=== PATIENT | male | born 1985 | race Two or more races ===

== ENCOUNTER 2018-01-14 16:37 | Emergency (ER) | payer MEDICAID ==
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
[2018-01-14] MEDS ORDERED: TDAP ADULT 0.5 ML INJ (BOOSTRIX) IM ONE (17:28)
[2018-01-14 18:35] VITALS: BP 108/70
== END 2018-01-14 18:35 | disposition home or self-care (01) ==
DX: S09.90XA Unspecified injury of head, initial encounter (principal); F17.200 Nicotine dependence, unspecified, uncomplicated; Z23 Encounter for immunization; Z91.040 Latex allergy status; V13.4XXA Pedal cycle driver injured in collision with car, pick-up truck or van in traffic accident, initial encounter; Y92.410 Unspecified street and highway as the place of occurrence of the external cause; Y99.8 Other external cause status; Y93.55 Activity, bike riding